=== PATIENT | male | born 1960 | race African-American/Black ===

== ENCOUNTER → 2020-11-24 | Outpatient (CLI) | payer MEDICARE, BC | LOC: EMI 14:00 | DX: G35 Multiple sclerosis (principal) | CPT/HCPCS: 70553; 72156; A9577 ==

== ENCOUNTER → 2021-03-01 | Outpatient (CLI) | payer MEDICARE, BC | LOC: KOH-I 10:00 | DX: M62.838 Other muscle spasm (principal); M48.02 Spinal stenosis, cervical region; R29.898 Other symptoms and signs involving the musculoskeletal system | CPT/HCPCS: 72125 ==

== ENCOUNTER → 2021-09-03 | Outpatient (CLI) | payer MEDICARE, BC | LOC: LAB 12:37 | DX: Z20.822 Contact with and (suspected) exposure to COVID-19 (principal) | CPT/HCPCS: U0003 ==

== ENCOUNTER → 2022-01-07 | Outpatient (CLI) | payer MEDICARE, BC | LOC: MRI 01-05 08:30 | DX: G35 Multiple sclerosis (principal); G95.89 Other specified diseases of spinal cord; R26.81 Unsteadiness on feet; M48.02 Spinal stenosis, cervical region; Z00.00 Encounter for general adult medical examination without abnormal findings | CPT/HCPCS: 36415; 70553; 72156; 82565; 84520; A9577 ==